=== PATIENT | female | born 1985 | race American Indian/Alaskan Native ===

== ENCOUNTER 2016-06-26 14:52 | Emergency (ER) | payer SELFPAY ==
[2016-06-26 14:59] VITALS: BP 158/109
[2016-06-26] MEDS ORDERED: TORADOL IM ONE (15:47)
--- NOTE | 2016-06-26 15:47 | Emergency Department Report ---
ED Back Pain/Injury HPI - General Chief Complaint: Back Pain/Injury Stated Complaint: BACK PAIN FROM SLIP AND FALL Time Seen by Provider: 06/26/16 15:26 Source: patient Limitations: No Limitations - History of Present Illness Initial Comments: Pt reports that she slipped and fell on her low back this AM. Denies other injuries. Denies numbness, tingling, bladder or bowel dysfunction. MD Complaint: back pain -: Sudden, hour(s) (4) Place: work Radiation: none Quality: aching Consistency: constant Improves With: immobilization Worsens With: movement Context: fall Associated Symptoms: denies other symptoms - Related Data Previous Rx's Medication Instructions Recorded Last Taken Type Cyclobenzaprine [Flexeril 10 MG 10 mg PO TID PRN #15 tablet 06/26/16 Unknown Rx TAB] Ibuprofen [Motrin 800 MG tab] 800 mg PO TID PRN #20 tablet 06/26/16 Unknown Rx Allergies Allergy/AdvReac Type Severity Reaction Status Date / Time No Known Allergies Allergy Unverified 01/18/14 16:24 ED Review of Systems ROS: Stated complaint: BACK PAIN FROM SLIP AND FALL Other details as noted in HPI Constitutional: denies: chills, fever Eyes: denies: eye pain, eye discharge, vision change ENT: denies: ear pain, throat pain Respiratory: denies: cough, shortness of breath, wheezing Cardiovascular: denies: chest pain, palpitations Endocrine: no symptoms reported Gastrointestinal: denies: abdominal pain, nausea, diarrhea Genitourinary: denies: urgency, dysuria, discharge Musculoskeletal: back pain. denies: joint swelling, arthralgia Skin: denies: rash, lesions Neurological: denies: headache, weakness, paresthesias Psychiatric: denies: anxiety, depression Hematological/Lymphatic: denies: easy bleeding, easy bruising ED Past Medical Hx - Past Medical History Previous Medical History?: No - Surgical History Past Surgical History?: No - Social History Smoking Status: Never Smoker Substance Use Type: None - Medications Home Medications: Home Medications Medication Instructions Recorded Confirmed Last Taken Type Cyclobenzaprine [Flexeril 10 MG 10 mg PO TID PRN #15 tablet 06/26/16 Unknown Rx TAB] Ibuprofen [Motrin 800 MG tab] 800 mg PO TID PRN #20 tablet 06/26/16 Unknown Rx ED Physical Exam - General Limitations: No Limitations General appearance: alert, in no apparent distress - Head Head exam: Present: atraumatic, normocephalic - Eye Eye exam: Present: normal appearance - ENT ENT exam: Present: mucous membranes moist - Neck Neck exam: Present: normal inspection - Respiratory Respiratory exam: Present: normal lung sounds bilaterally. Absent: respiratory distress - Cardiovascular Cardiovascular Exam: Present: regular rate, normal rhythm. Absent: systolic murmur, diastolic murmur, rubs, gallop - GI/Abdominal GI/Abdominal exam: Present: soft, normal bowel sounds. Absent: tenderness - Extremities Exam Extremities exam: Present: normal inspection - Back Exam Back exam: Present: normal inspection, full ROM, tenderness (lumbar region), muscle spasm - Neurological Exam Neurological exam: Present: alert, oriented X3, normal gait, reflexes normal. Absent: motor sensory deficit - Psychiatric Psychiatric exam: Present: normal affect, normal mood - Skin Skin exam: Present: warm, dry, intact, normal color. Absent: rash ED Course Vital Signs 06/26/16 14:55 Temperature 97.9 F Pulse Rate 93 H Respiratory 18 Rate Blood Pressure 158/109 O2 Sat by Pulse 100 Oximetry - Reevaluation(s) Reevaluation #1: 06/26/16 16:48 NAD, stable for d/c. ED Medical Decision Making - Radiology Data Radiology results: image reviewed interpreted by me: nakia - Medical Decision Making Pt with relatively benign exam. No evidence of acute process on imaging. Follow up with PCP/ortho. - Differential Diagnosis strain, contusion, fx Critical care attestation.: If time is entered above; I have spent that time in minutes in the direct care of this critically ill patient, excluding procedure time. ED Disposition Clinical Impression: Lumbar contusion Qualifiers: Encounter type: initial encounter Qualified Code(s): S30.0XXA - Contusion of lower back and pelvis, initial encounter Disposition: DISCHARGED TO HOME OR SELFCARE Is pt being admited?: No Condition: Good Instructions: Contusion in Adults (ED) Prescriptions: Cyclobenzaprine [Flexeril 10 MG TAB] 10 mg PO TID PRN #15 tablet PRN Reason: Muscle Spasm Ibuprofen [Motrin 800 MG tab] 800 mg PO TID PRN #20 tablet PRN Reason: Pain Referrals: PRIMARY CARE, [Primary Care Provider] - 3-5 Days MANUEL YAN MD [Staff Physician] - 3-5 Days Forms: Work/School Release Form(ED) Time of Disposition: 16:49
--- NOTE | 2016-06-26 16:56 | XRay Report ---
LUMBAR SPINE RADIOGRAPHS: INDICATION: Pain, fall. COMPARISON: None similar. FINDINGS: AP and lateral lumbar spine radiographs, 5 images, demonstrate preserved vertebral body stature and alignment. Grossly preserved disc heights, though slight lower lumbar disc narrowing and facet arthropathy not entirely excluded. Some extrinsic clothing artifacts. Extensive descending colon and rectosigmoid stool/possible constipation. Normal bilateral SI joints. CONCLUSION: No acute lumbar radiographic abnormality with few incidental findings, as above. Please correlate. Thank you for the opportunity to participate in this patient's care.
== END 2016-06-26 16:57 | disposition home or self-care (01) ==
LOC: ED 14:52
DX: S30.0XXA Contusion of lower back and pelvis, initial encounter (principal); W01.0XXA Fall on same level from slipping, tripping and stumbling without subsequent striking against object, initial encounter; Y93.89 Activity, other specified; Y99.8 Other external cause status; Y92.89 Other specified places as the place of occurrence of the external cause
CPT/HCPCS: 72100; 96372; 99283; J1885

== ENCOUNTER 2017-05-22 18:01 | Emergency (ER) | payer OTHER ==
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
[2017-05-23 00:43] VITALS: BP 154/78
== END 2017-05-23 00:42 | disposition home or self-care (01) ==
LOC: ED 18:01
DX: S39.012A Strain of muscle, fascia and tendon of lower back, initial encounter (principal); M54.5 Low back pain; V89.2XXA Person injured in unspecified motor-vehicle accident, traffic, initial encounter; Y93.89 Activity, other specified; Y99.8 Other external cause status; Y92.488 Other paved roadways as the place of occurrence of the external cause
CPT/HCPCS: 99282